=== PATIENT | female | born 1985 | race Caucasian/White ===

== ENCOUNTER 2018-08-15 07:39 | Day surgery (SDC) | payer OTHER ==
[~2018-08-15 07:39] MED LIST: DESFLURANE 15 MIN
[2018-08-15] MEDS: GABAPENTIN 300 MG CAP PO (09:00)
[2018-08-15] MEDS ORDERED: FENTAnyl 50 MCG/ML VIAL (10:06)
[2018-08-15] MEDS ORDERED: CEFAZOLIN 1 GM INJ (10:06)
[2018-08-15] MEDS ORDERED: PROPOFOL 20 ML (10:06)
[2018-08-15] MEDS ORDERED: ROCURONIUM 50 MG INJ (10:06)
[2018-08-15] MEDS ORDERED: DEXAMETHASONE 4 MG/ML 5 ML INJ (10:06)
[2018-08-15] MEDS ORDERED: ONDANSETRON 4 MG INJ (10:06)
[2018-08-15] MEDS ORDERED: GLYCOPYRROLATE 0.4 MG INJ (10:06)
[2018-08-15] MEDS ORDERED: NEOSTIGMINE 3 MG/3 ML SYRINGE (10:06)
[2018-08-15] MEDS ORDERED: MIDAZOLAM 1 MG/ML 2 ML INJ (10:06)
[2018-08-15] MEDS ORDERED: ROPIVACAINE 0.5 % 30 ML VIAL (10:07)
[2018-08-15] MEDS ORDERED: SUGAMMADEX SODIUM 200 MG/2 ML VIAL IV (10:43)
[2018-08-15] MEDS ORDERED: EPHEDrine SULFATE 50 MG/5 ML SYG IV (11:30)
[2018-08-15] MEDS ORDERED: IPRATROPIUM (NEB) 0.5 MG/2.5 ML AMP HHN (11:30)
[2018-08-15] MEDS ORDERED: DIPHENHYDRAMINE 50 MG INJ IV (11:30)
[2018-08-15] MEDS ORDERED: MIDAZOLAM 1 MG/ML 2 ML INJ IV (11:30)
[2018-08-15] MEDS ORDERED: hydrALAzine 20 MG INJ IV (11:30)
[2018-08-15] MEDS ORDERED: TRIMETHOBENZAMIDE 100 MG/ML VIAL IM (11:30)
[2018-08-15] MEDS ORDERED: FENTAnyl 50 MCG/ML VIAL IV ×3 (11:30)
[2018-08-15] MEDS ORDERED: MEPERIDINE 25 MG INJ IV (11:30)
[2018-08-15] MEDS ORDERED: OXYCODONE/ACETAMINOPHEN (5/325) TAB PO (11:30)
[2018-08-15] MEDS ORDERED: LABETALOL HCL 20MG INJ IV (11:30)
[2018-08-15] MEDS ORDERED: HYDROmorphONE 1 MG/5 ML IV SYRINGE IV ×2 (11:30)
[2018-08-15] MEDS ORDERED: ALBUTEROL 0.083% (NEB) 2.5 MG/3 ML AMP HHN (11:30)
[2018-08-15] MEDS: CEFAZOLIN 2 GM/50 ML (PMX) 50 ML IVPB (11:42)
[2018-08-15] MEDS: OXYCODONE/ACETAMINOPHEN (5/325) TAB PO (13:20)
[2018-08-15] MEDS: ONDANSETRON 4 MG INJ IV (13:20)
[2018-08-15] MEDS: HYDROmorphONE 1 MG/5 ML IV SYRINGE IV (13:21)
== END 2018-08-15 15:00 | disposition home or self-care (01) ==
LOC: SDS 07:39
DX: M25.311 Other instability, right shoulder (principal)
CPT/HCPCS: 29806; 84703